=== PATIENT | female | born 1955 | race Caucasian/White ===

== ENCOUNTER 2025-10-05 09:57 | Outpatient (CLI) | payer MEDICARE, MEDICAID ==
--- NOTE | 2025-10-05 11:49 | RADIOLOGY REPORT ---
PROCEDURE: CT CT CHEST LOW DOSE Reason for study/Clinical History: NICOTINE DEPENDENCE, CIGARETTES, UNCOMPLICATED COMPARISON: None TECHNIQUE: Multidetector CT of the chest was performed from the lung apices to the upper abdomen without the use of intravenous contract. Axial, coronal and sagittal multiplanar reformats were performed. Radiation Dose Information: CT Dose: CTDI volume is 2.6 mGy. Dose-length product is 83.4 mGy*cm The dose indicators for CT are the volume Computed Tomography (CT) Dose Index (CTDIvol) and the Dose Length Product (DLP), and are measured in units of mGy and mGy-cm, respectively. These indicators are not patient dose, but values generated from the CT scanner acquisition factors. The report includes radiation exposure data for exposures received during this examination. FINDINGS: Lower neck: Normal thyroid. Lungs: No focal consolidation. Linear subsegmental atelectasis or scarring in the left lung base. 0.7 cm ground-glass opacity in the left upper lobe, image 39 0.6 cm ground-glass nodule in the right upper lobe, image 65. [id number] 4 % * According to the Fleischner Society Statement (Galvan MAGGY, et al., Radiology 2015), there is no significant emphysema if TRISTAN is less than 6%. Heart/Vascular Structures: Vascular calcifications of the aorta. Coronary artery calcifications. Agatston Score 67/N3 Arterial Age 70 yrs (95 % CI 69-71 yrs) Lymph Nodes: No adenopathy Pleura: No pleural effusion or significant pneumothorax. Musculoskeletal: No acute osseous abnormality. Soft tissues: Normal. Upper abdomen: Limited portions of the upper abdomen are unremarkable. IMPRESSION: 0.7 cm ground-glass opacity in the left upper lobe. 0.6 cm ground-glass nodule in the right upper lobe. LUNG-RADS Category 2: Benign appearance or behavior. Continue annual screening with low dose CT in 12 months. Coronary artery calcifications. LUNG RADS Category 2: Continue annual screening with LDCT
== END 2025-10-05 23:59 | disposition home or self-care (01) ==
LOC: RAD 09:57
PROVIDERS: ATTEND Family Medicine
DX: Z12.2 Encounter for screening for malignant neoplasm of respiratory organs (principal); I25.10 Atherosclerotic heart disease of native coronary artery without angina pectoris; I77.819 Aortic ectasia, unspecified site; Z87.891 Personal history of nicotine dependence; J98.11 Atelectasis; Z96.611 Presence of right artificial shoulder joint; Z96.612 Presence of left artificial shoulder joint; M47.814 Spondylosis without myelopathy or radiculopathy, thoracic region
CPT/HCPCS: 71271